=== PATIENT | female | born 1940 | race Caucasian/White ===

== ENCOUNTER 2019-11-03 07:29 | Emergency (ER) | payer MEDICARE ==
[~2019-11-03] VITALS: Ht 157.5 cm; Wt 56.4 kg
[2019-11-03 07:43] VITALS: BP 133/97
[2019-11-03] MEDS ORDERED: LIDOcaine 1% W/epiNEPHrine 1:200,000 10ml vial IJ ONE (07:55)
[2019-11-03] MEDS ORDERED: cephalexin 250mg capsule PO ONE (09:45)
[2019-11-03] MEDS ORDERED: CEPH-572 PO (09:57)
== END 2019-11-03 10:08 | disposition home or self-care (01) ==
LOC: ER 07:29
DX: S81.811A Laceration without foreign body, right lower leg, initial encounter (principal); W01.0XXA Fall on same level from slipping, tripping and stumbling without subsequent striking against object, initial encounter; Y93.89 Activity, other specified; Y92.89 Other specified places as the place of occurrence of the external cause; Y99.8 Other external cause status; Z72.89 Other problems related to lifestyle
CPT/HCPCS: 12034; 99284

== ENCOUNTER 2019-11-07 06:50 | Emergency (ER) | payer MEDICARE, BC ==
[~2019-11-07] VITALS: Ht 157.5 cm; Wt 54.4 kg
[~2019-11-07 06:50] MED LIST: CEPH-572 PO
[2019-11-07] MEDS ORDERED: bacitracin 15gm ointment TP ONE (07:45)
[2019-11-07 09:19] VITALS: BP 151/81
== END 2019-11-07 08:30 | disposition home or self-care (01) ==
LOC: ER 06:50
DX: S81.811D Laceration without foreign body, right lower leg, subsequent encounter (principal); Z00.00 Encounter for general adult medical examination without abnormal findings; Z72.89 Other problems related to lifestyle; Z79.899 Other long term (current) drug therapy; W19.XXXD Unspecified fall, subsequent encounter
CPT/HCPCS: 99282

== ENCOUNTER 2020-02-04 06:25 | Emergency (ER) | payer MEDICARE, BC ==
[~2020-02-04] VITALS: Ht 157.5 cm; Wt 54.5 kg
[2020-02-04] MEDS ORDERED: LORazepam 1 MG tablet PO ONE (08:25)
[2020-02-04] MEDS ORDERED: magnesium oxide 400mg tablet PO ONE (08:25)
[2020-02-04 10:18] LABS: BASOPHILS % (AUTO) 0.5 % (0-1); EOSINOPHILS % (AUTO) 0.1 % (0-6); HEMATOCRIT 41.7 % (35.0-45.0); HEMOGLOBIN 14.3 g/dl (12.0-16.0); LYMPHOCYTES # (AUTO) 1.1 X10'3 (1.1-4.8); LYMPHOCYTES % (AUTO) 17.8 % (21-51); MEAN CORPUSCULAR HGB CONC 34.2 g/dL (33.0-36.5); MEAN CORPUSCULAR VOLUME 93.5 FL (78-98); MEAN PLATELET VOLUME 7.1 FL (7.4-10.4); MONOCYTES # (AUTO) 0.3 X10'3 (0-0.9); MONOCYTES % (AUTO) 5.5 % (2-12); NEUTROPHILS # (AUTO) 4.6 X10'3 (1.8-7.7); NEUTROPHILS % (AUTO) 76.1 % (42-75); PLATELET COUNT 256 X10'3 (140-440); RED BLOOD COUNT 4.46 X10'6 (4.20-5.60); RED CELL DISTRIBUTION WIDTH 12.8 % (11.5-14.5); WHITE BLOOD COUNT 6.1 X10'3 (4.5-11.0)
[2020-02-04 10:34] LABS: ALANINE AMINOTRANSFERASE 30 U/L (12-78); ALBUMIN 3.5 G/DL (3.4-5.0); ALBUMIN/GLOBULIN RATIO 1.1 (1.1-1.5); ALKALINE PHOSPHATASE 61 IU/L (46-116); ANION GAP 10 (8-16); ASPARTATE AMINO TRANSFERASE 30 U/L (10-37); BILIRUBIN,TOTAL 0.5 MG/DL (0.1-1.0); BLOOD UREA NITROGEN 28 MG/DL (7-18); BUN/CREATININE RATIO 27.5 (6.6-38.0); CALCIUM 8.7 MG/DL (8.5-10.1); CHLORIDE 107 MMOL/L (99-107); CREATININE 1.02 MG/DL (0.40-0.90); GLUCOSE 101 MG/DL (70-104); POTASSIUM 4.2 MMOL/L (3.5-5.1); SODIUM 143 MMOL/L (135-145); TOTAL CARBON DIOXIDE 25.8 MMOL/L (24-32); TOTAL PROTEIN 6.8 G/DL (6.4-8.2); eGFR 53 ML/MIN
[2020-02-04] MEDS ORDERED: aspirin 325mg tablet PO ONE (12:20)
[2020-02-04] MEDS ORDERED: iohexol 350MG/ML 100ml bottle IV ONE (12:32)
--- NOTE | 2020-02-04 13:00 | NUR ---
back from [place]
[2020-02-04 13:42] VITALS: BP 145/73
--- NOTE | 2020-02-04 14:14 | NUR ---
[facility] CALLED AND DECLINED TRANSFER FOR LACK OF AVAILABLE BEDS. PT'S PROVIDER AND RN NOTIFIED
[2020-02-05] MEDS ORDERED: GADOTERATE MEGLUMINE 7.5 MMOL/15 ML VIAL IV ONE (07:18)
== END 2020-02-04 20:24 | disposition short-term general hospital (02) ==
LOC: ER 06:26
DX: R53.1 Weakness (principal); Z20.828 Contact with and (suspected) exposure to other viral communicable diseases; R20.0 Anesthesia of skin; Z72.89 Other problems related to lifestyle; Z98.890 Other specified postprocedural states
CPT/HCPCS: 36415; 70450; 70496; 70498; 70553; 80053; 85025; 87635; 93005; 99285; C9803; Q9967; A9575

== ENCOUNTER 2021-01-15 08:24 | Outpatient (CLI) | payer MEDICARE, BC | END 2021-01-15 23:59 | disposition home or self-care (01) | LOC: RAD 08:24 | PROVIDERS: ATTEND Psychiatry & Neurology Neurology | DX: R94.01 Abnormal electroencephalogram [EEG] (principal); G40.109 Localization-related (focal) (partial) symptomatic epilepsy and epileptic syndromes with simple partial seizures, not intractable, without status epilepticus | CPT/HCPCS: 95816 ==

== ENCOUNTER 2022-03-17 14:21 | Emergency (ER) | payer MEDICARE, BC ==
[~2022-03-17] VITALS: Ht 157.5 cm; Wt 50.0 kg
[2022-03-17 15:02] VITALS: BP 163/57
== END 2022-03-17 15:04 | disposition home or self-care (01) ==
LOC: ER 14:21
DX: S80.11XA Contusion of right lower leg, initial encounter (principal); M79.604 Pain in right leg; X58.XXXA Exposure to other specified factors, initial encounter; Y93.89 Activity, other specified; Y92.89 Other specified places as the place of occurrence of the external cause; Y99.8 Other external cause status
CPT/HCPCS: 10160; 99284; A6258; A6446; A6449